=== PATIENT | male | born 1950 | race Caucasian/White ===

== ENCOUNTER 2021-09-26 20:18 | Inpatient (IN) | payer MEDICARE, SELFPAY ==
[2021-09-26 21:00] VITALS: BP 172/77; PULSE 73; RESP 19; TEMP 36.6; O2SAT 98
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
[2021-09-26 23:26] VITALS: BP 172/77; PULSE 73
[2021-09-26] MEDS: hydrALAZINE HCl 50 MG TABLET PO (23:26)
[2021-09-26] MEDS: QUEtiapine Fumarate 100 MG TABLET PO (23:30)
[2021-09-26] MEDS: QUEtiapine Fumarate 25 MG TABLET PO (23:30)
[2021-09-26] MEDS: LORazepam 1 MG TABLET PO (23:31)
[2021-09-27] MEDS: traZODone HCL 50 MG TABLET PO ×2 (00:25→20:28)
--- NOTE | 2021-09-27 02:37 | PC.ADMIT ---
Patient is a 71 year old male who arrived to the unit from [facility] via stretcher accompanied by Security and EMT. Patient is able to sign CV and all consent forms. Patient arrived to the unit alert and oriented x4, calm, pleasant, cooperative and tearful at times. Patient was brought to the ED via ambulance from [facility] in patient psych unit. Patient was admitted at [facility] with diagnosis of Bipolar 1 disorder, depression and Suicidal ideation. Patient reports spouse a week ago and as a result of the loss, he wanted to take his own life by medicating with percoset in hopes of overdosing. Pt reports I didn't think my would have loved that so I flushed the meds and called the police who took me to [facility]. Patient has history of multiple inpatient psychiatric, rehab and detox hospitalizations. 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 Patient wears dentures (up and down) and reports using glasses at baseline but states I don't have them with me because they are broken. Patient denies pain, denies SI/HI/AH/VH. Patient ambulates independently, skin is intact, no alterations to skin integrity noted or reported, no acute SOB noted, abdomen is soft and non tender with positive bowel sounds in all four quadrants. Patient reports independent with ADLs.
[2021-09-27 06:00] VITALS: BP 125/64; PULSE 87; RESP 14; TEMP 36.9; O2SAT 97
[2021-09-27 06:33] LABS: MANUAL DIFF FLAG NO
[2021-09-27 06:53] LABS: Basophils Percent Auto 0.3 % (0-2); Eosinophils Absolute Auto 0.1 X10*3/uL (0.0-0.4); Eosinophils Percent Auto 3.1 % (0-4); Hematocrit 33.2 % (42.0-52.0); Hemoglobin 11.3 g/dl (14.0-18.0); Imm Gran Abs Auto 0.01 X10*3/uL (0.00-0.03); Imm Gran Pct Auto 0.3 % (0.0-0.4); Lymphocytes Absolute Auto 0.8 X10*3/uL (1.2-4.9); Lymphocytes Percent Auto 22.9 % (20-40); Mean Corpuscular Hemoglobin 32.8 pg (27.0-33.0); Mean Corpuscular Volume 96.2 fL (80.0-98.0); Mean Platelet Volume 10.2 fL (9.4-12.4); Monocytes Absolute Auto 0.5 X10*3/uL (0.1-1.2); Monocytes Percent Auto 14.4 % (2-11); Neutrophils Absolute Auto 2.1 x10*3/uL (2.0-8.3); Platelet Count 197 X10*3/uL (160-400); Red Blood Count 3.45 X10*6/uL (4.60-5.80); Red Cell Distribution Width 13.2 % (11.0-16.0); White Blood Count 3.5 X10*3/uL (4.8-10.8)
[2021-09-27 06:58] LABS: Alanine Aminotransferase 23 U/L (0-40); Albumin Level 3.5 g/dL (3.5-5.0); Alkaline Phosphatase 50 U/L (39-117); Anion Gap 12 (12-20); Aspartate Amino Transferase 24 U/L (5-37); Bilirubin Total 0.6 mg/dL (0.0-1.0); Blood Urea Nitrogen 23 mg/dL (9-16); Calcium 8.1 mg/dL (8.4-10.2); Carbon Dioxide 23 mmol/L (22-29); Chloride 106 mmol/L (96-108); Cholesterol 115 mg/dL; Estimated Glomerular Filt Rate 58; Glucose Random 88 mg/dL (60-115); HDL Cholesterol 54 mg/dL; LDL Cholesterol Calculated 50 mg/dl; Magnesium 2.6 mg/dL (1.6-2.6); Potassium 4.1 mmol/L (3.3-5.1); Sodium 137 mmol/L (135-145); Total Protein 5.6 g/dL (6.5-8.0); Triglycerides 58 mg/dL
[2021-09-27 09:46] VITALS: BP 125/64; PULSE 87
[2021-09-27] MEDS: hydrALAZINE HCl 50 MG TABLET PO ×3 (09:46→20:28)
[2021-09-27] MEDS: Sertraline HCL 50 MG TABLET PO (09:46)
[2021-09-27] MEDS: Multivitamin TABLET 1 TAB PO (09:46)
[2021-09-27] MEDS: Folic Acid 1 MG TABLET PO (09:46)
[2021-09-27 09:47] VITALS: BP 125/64; PULSE 87
[2021-09-27] MEDS: Thiamine HCL 100 MG TABLET PO (09:47)
[2021-09-27] MEDS: amLODIPine Besylate 5 MG TABLET PO (09:47)
[2021-09-27] MEDS: QUEtiapine Fumarate 25 MG TABLET PO ×3 (09:47→20:28)
[2021-09-27] MEDS: Nicotine 21 MG PATCH.TD24 TRANSDERMA (09:47)
--- NOTE | 2021-09-27 11:26 | HO.PSYCHPN ---
Subjective Subjective Date of Service: 09/27/21 Reason For Visit: MDD recurrent, Bipolar disorder, depressed severe Subjective Notes: Conditional Voluntary Interim History: The nursing staff reported that the patient has been dysphoric, staying mostly on his bed. On interview the patient reports that she is feeling very sad and she is mourning the loss of his . At this moment he is able to contract for safety and he denies new symptoms Mental Status Exam Mental Status Exam Patient Appearance: Disheveled Patient Orientation: Person and Situation Level of Consciousness: Awake and Appropriate Patient Behavior: Cooperative and Passive Mood Description: Withdrawn and Depressed Affect Description: Constricted Patient Cognition Impaired: No Ability to Follow Directions: Good Speech Pattern: Clear Memory Description: Intact Hallucinations: None Delusions: Not Present Thought Process: Linear Thought Content: positive for Circumstantial Depressive Symptoms: Increased Anxiety, Crying Spells, Loss of Int. in Activity and Feelings of Worthlessness Judgement: Fair Diagnostics Vital Signs (24Hr): Vital Signs - 24 hr 09/26/21 21:00 09/26/21 23:26 09/27/21 06:00 Temperature 97.8 F 98.4 F Pulse Rate 73 73 87 Respiratory Rate 19 14 Blood Pressure 172/77 H 172/77 H 125/64 Pulse Oximetry 98 97 09/27/21 09:46 09/27/21 09:47 Temperature Pulse Rate 87 87 Respiratory Rate Blood Pressure 125/64 125/64 Pulse Oximetry Labs Results: 09/27/21 06:28 09/27/21 06:28 Labs: Laboratory Results - last 48 hr 09/27/21 09/27/21 06:28 06:28 WBC 3.5 L RBC 3.45 L Hgb 11.3 L Hct 33.2 L MCV 96.2 MCH 32.8 MCHC 34.0 RDW 13.2 Plt Count 197 MPV 10.2 Immature Gran % (Auto) 0.3 Neut % (Auto) 59.0 Lymph % (Auto) 22.9 [place] % (Auto) 14.4 H Eos % (Auto) 3.1 Baso % (Auto) 0.3 Lymph # (Auto) 0.8 L [place] # (Auto) 0.5 Eos # (Auto) 0.1 Baso # (Auto) 0.0 Abs Immat Gran (auto) 0.01 Absolute Neuts (auto) 2.1 Absolute Nucleated RBC 0.000 Nucleated RBC % (auto) 0.0 Sodium 137 Potassium 4.1 Chloride 106 Carbon Dioxide 23 Anion Gap 12 BUN 23 H Creatinine 1.23 Estim Creat Clear Calc TNP Estimated GFR 58 Random Glucose 88 Calcium 8.1 L Magnesium 2.6 Total Bilirubin 0.6 AST 24 ALT 23 Alkaline Phosphatase 50 Total Protein 5.6 L Albumin 3.5 Triglycerides 58 Cholesterol 115 LDL Cholesterol, Calc 50 HDL Cholesterol 54 Medications Medications Current Medications Acetaminophen (Acetaminophen 325 Mg Tablet) 650 mg PO Q6H PRN PRN Reason: Headache/Pain Mild Scale (1-3) Al Hydroxide/Mg Hydroxide (Magnesium Hydrox/Alum Hydrox 30 Ml Oral.Susp) 30 ml PO Q6H PRN PRN Reason: Heartburn/Nausea Albuterol Sulfate (Albuterol Sulfate 90 Mcg 8 Gm Inhaler) 2 puff INHALE Q4H PRN PRN Reason: Shortness of Breath Amlodipine Besylate (Amlodipine Besylate 5 Mg Tablet) 5 mg PO DAILY [facility]; Protocol Last Admin: 09/27/21 09:47 Dose: 5 mg Documented by: Folic Acid (Folic Acid 1 Mg Tablet) 1 mg PO DAILY [facility] Last Admin: 09/27/21 09:46 Dose: 1 mg Documented by: Hydralazine HCl (Hydralazine Hcl 50 Mg Tablet) 50 mg PO TID [facility]; Protocol Last Admin: 09/27/21 09:46 Dose: 50 mg Documented by: Hydroxyzine HCl (Hydroxyzine Hcl 25 Mg Tablet) 25 mg PO Q6H PRN PRN Reason: Anxiety Lorazepam (Lorazepam 1 Mg Tablet) 1 mg PO Q6H PRN PRN Reason: anxiety, alcohol withdrawal Last Admin: 09/26/21 23:31 Dose: 1 mg Documented by: Magnesium Hydroxide (Milk Of Magnesia 30 Ml Oral.Susp) 30 ml PO DAILY PRN PRN Reason: Constipation Multivitamins/Vitamin C (Multivitamin Tablet) 1 tab PO DAILY [facility] Last Admin: 09/27/21 09:46 Dose: 1 tab Documented by: Nicotine (Nicotine 21 Mg Patch.Td24) 21 mg TRANSDERMA DAILY [facility] Last Admin: 09/27/21 09:47 Dose: 21 mg Documented by: Quetiapine Fumarate (Quetiapine Fumarate 100 Mg Tablet) 100 mg PO BEDTIME [facility] Last Admin: 09/26/21 23:30 Dose: 100 mg Documented by: Quetiapine Fumarate (Quetiapine Fumarate 25 Mg Tablet) 25 mg PO TID [facility] Last Admin: 09/27/21 09:47 Dose: 25 mg Documented by: Sertraline HCl (Sertraline Hcl 50 Mg Tablet) 50 mg PO DAILY [facility] Last Admin: 09/27/21 09:46 Dose: 50 mg Documented by: Thiamine HCl (Thiamine Hcl 100 Mg Tablet) 100 mg PO DAILY [facility] Last Admin: 09/27/21 09:47 Dose: 100 mg Documented by: Trazodone HCl (Trazodone Hcl 50 Mg Tablet) 50 mg PO BEDTIME PRN PRN Reason: Insomnia Last Admin: 09/27/21 00:25 Dose: 50 mg Documented by: Allergies Allergies Allergy/AdvReac Type Severity Reaction Status Date / Time No Known Allergies Allergy Unverified 09/26/21 20:49 Assessment & Plan Assessment & Plan (1) MDD (major depressive disorder), recurrent severe, without psychosis: Status: Acute Code(s): F33.2 - Major depressive disorder, recurrent severe without psychotic features (2) Cocaine use disorder: Status: Acute Code(s): F14.10 - Cocaine abuse, uncomplicated (3) Alcohol use disorder, severe, dependence: Status: Acute Code(s): F10.20 - Alcohol dependence, uncomplicated Assessment and Plan: 71 y.o. Male who carries a dx of MDD, recurrent, severe, alcohol use disorder, and cocaine use disorder. He is currently presenting with sx of acute grief s/p loss of 09/19/21, depression, suicidal ideation, and with active alcohol and substance abuse. Plan: Order CIWA monitoring, ativan 1 mg Q6H PRN for alcohol withdrawal. Seroquel and zoloft were re-started at [place] due to pt reporting past benefit on these medications for sleep, anxiety, and mood sx- no med changes. Reviewed medical workup at ED, EKG wnl, NSR. Will continue on thiamine, folic acid regimen. Monitor response to medications. Monitor for safety in the milieu. Discharge on stabilization. Patient seen. Chart reviewed. Discussed with team. Obtain collateral contact info?as needed I spent minutes with the patient and/or on the patient floor today, greater than?50% of which was spent counseling/coordinating care. Reason for contiued inpatient stay Substantial Risk for: inability to function, rapid decompensation and med/psych decompensation
[2021-09-27] MEDS: LORazepam 1 MG TABLET PO ×2 (12:36→19:12)
[2021-09-27 15:25] VITALS: BP 120/64; PULSE 82
--- NOTE | 2021-09-27 15:30 | HO.HSGERICON ---
History of Present Illness Data of Consult Service Date: 09/27/21 Primary Care Provider: Unknown Physician HPI Reason for consult: new admit from [facility] 71-year-old male history of bipolar, PTSD, hypertension noncompliant with medication, history of alcohol abuse, COPD, smoking crack use-he try to end his life with the taking Percocet after his to 3 weeks ago. He was transferred from [facility] to [place] to [facility] psych floor. Patient was seen and examined: Denies any new complaint of chest pain or shortness of breath or abdominal pain or fever or chills or nausea or vomiting Denies any cough Denies any weakness or numbness. Past medical history as per [facility] H&P. Bipolar disorder CV a ETOH abuse Heroin abuse Hypertension Peripheral neuropathy PTSD Right facial numbness Suicidal ideation Review of Systems Review of Systems: As above. Yes all other systems are reviewed and are negative ENT: Reports Normal hearing present Neurologic: Reports Normal hearing present PMFSH Cognitive capacity: As above in HPI. Pertinent family history: Lives alone, has history of alcoholism, hypertension in the family. recently. As above. Social History Household Members: None Housing: Homeless Do you presently have visiting nurse or other home services: No Patient Tobacco Use Status: Current everyday Tobacco user Tobacco use type: Cigarette Cigarettes Per Day: 0.5 Smoked in Last 30 Days: Yes Patient Interested in Nicotine Replacement: Yes Use of substances other than those prescribed or required for medical reasons: Yes Substance Use Type: Amphetamines, Crack/Cocaine, Former Substance User, Marijuana, Methamphetamine and Opiates Substance Use Frequency: Daily Last Used Substance: Weeks (ago) Last Used Substance Other:: 1 week ago Currently Displaying Signs/Symptoms of Drug Intoxication Withdrawal: No Any prior treatment program specific to substance use: Yes (Hx of detox treatment in the past) Have you been hit, kicked, punched, or otherwise hurt by someone within the past year? If so, by whom?: No Do you feel safe in your current relationship?: No Is there a partner from a previous relationship who is making you feel unsafe now?: No Are you made to feel afraid or neglected: No Advance Directives: No Advance Directives Information Provided: No Do you have thoughts of harming others: None Do you have a plan to hurt others: No Plan Recently lost weight without trying: No Eating poorly because of decreased appetite: No Nutrition Risks: No Nutritional Risk Poor oral hygiene: No Meds Allergies Allergy/AdvReac Type Severity Reaction Status Date / Time No Known Allergies Allergy Unverified 09/26/21 20:49 Active Medications: Current Medications Acetaminophen (Acetaminophen 325 Mg Tablet) 650 mg PO Q6H PRN PRN Reason: Headache/Pain Mild Scale (1-3) Al Hydroxide/Mg Hydroxide (Magnesium Hydrox/Alum Hydrox 30 Ml Oral.Susp) 30 ml PO Q6H PRN PRN Reason: Heartburn/Nausea Albuterol Sulfate (Albuterol Sulfate 90 Mcg 8 Gm Inhaler) 2 puff INHALE Q4H PRN PRN Reason: Shortness of Breath Amlodipine Besylate (Amlodipine Besylate 5 Mg Tablet) 5 mg PO DAILY [facility]; Protocol Last Admin: 09/27/21 09:47 Dose: 5 mg Documented by: Folic Acid (Folic Acid 1 Mg Tablet) 1 mg PO DAILY [facility] Last Admin: 09/27/21 09:46 Dose: 1 mg Documented by: Hydralazine HCl (Hydralazine Hcl 50 Mg Tablet) 50 mg PO TID [facility]; Protocol Last Admin: 09/27/21 15:25 Dose: 50 mg Documented by: Hydroxyzine HCl (Hydroxyzine Hcl 25 Mg Tablet) 25 mg PO Q6H PRN PRN Reason: Anxiety Lorazepam (Lorazepam 1 Mg Tablet) 1 mg PO Q6H PRN PRN Reason: anxiety, alcohol withdrawal Last Admin: 09/27/21 12:36 Dose: 1 mg Documented by: Magnesium Hydroxide (Milk Of Magnesia 30 Ml Oral.Susp) 30 ml PO DAILY PRN PRN Reason: Constipation Multivitamins/Vitamin C (Multivitamin Tablet) 1 tab PO DAILY [facility] Last Admin: 09/27/21 09:46 Dose: 1 tab Documented by: Nicotine (Nicotine 21 Mg Patch.Td24) 21 mg TRANSDERMA DAILY [facility] Last Admin: 09/27/21 09:47 Dose: 21 mg Documented by: Quetiapine Fumarate (Quetiapine Fumarate 100 Mg Tablet) 100 mg PO BEDTIME [facility] Last Admin: 09/26/21 23:30 Dose: 100 mg Documented by: Quetiapine Fumarate (Quetiapine Fumarate 25 Mg Tablet) 25 mg PO TID [facility] Last Admin: 09/27/21 15:25 Dose: 25 mg Documented by: Sertraline HCl (Sertraline Hcl 50 Mg Tablet) 50 mg PO DAILY [facility] Last Admin: 09/27/21 09:46 Dose: 50 mg Documented by: Thiamine HCl (Thiamine Hcl 100 Mg Tablet) 100 mg PO DAILY [facility] Last Admin: 09/27/21 09:47 Dose: 100 mg Documented by: Trazodone HCl (Trazodone Hcl 50 Mg Tablet) 50 mg PO BEDTIME PRN PRN Reason: Insomnia Last Admin: 09/27/21 00:25 Dose: 50 mg Documented by: Results Labs CBC and Chem 7: 09/27/21 06:28 09/27/21 06:28 Labs: Laboratory Results - last 24 hr 09/27/21 09/27/21 06:28 06:28 MCV 96.2 MCH 32.8 MCHC 34.0 RDW 13.2 Plt Count 197 MPV 10.2 Immature Gran % (Auto) 0.3 Neut % (Auto) 59.0 Lymph % (Auto) 22.9 [place] % (Auto) 14.4 H Eos % (Auto) 3.1 Baso % (Auto) 0.3 Lymph # (Auto) 0.8 L [place] # (Auto) 0.5 Eos # (Auto) 0.1 Baso # (Auto) 0.0 Abs Immat Gran (auto) 0.01 Absolute Neuts (auto) 2.1 Absolute Nucleated RBC 0.000 Nucleated RBC % (auto) 0.0 Anion Gap 12 Estim Creat Clear Calc TNP Estimated GFR 58 Random Glucose 88 Calcium 8.1 L Magnesium 2.6 Total Bilirubin 0.6 AST 24 ALT 23 Alkaline Phosphatase 50 Total Protein 5.6 L Albumin 3.5 Triglycerides 58 Cholesterol 115 LDL Cholesterol, Calc 50 HDL Cholesterol 54 Assessment and Plan (1) HTN (hypertension): Status: Acute 71-year-old male who was transferred from the [facility] secondary to suicidal ideation use of Percocet. 1. Hypertension continue amlodipine. Blood pressure stable currently. 2. COPD: Stable continue albuterol. 3. Alcohol abuse history: Continue thiamine and folic acid, currently does not look into in withdrawal. Last alcohol use is more than a week back. Continue thiamine and folic acid. 4. PTSD/anxiety, drug use cocaine : Continue current anxiety medication and further management as per psych. Above management discussed with patient's psych provider in detail. Physical Exam Vital Signs: Last Vital Signs Temp 98.4 F 09/27/21 06:00 Pulse 82 09/27/21 15:25 Resp 14 09/27/21 06:00 BP 120/64 09/27/21 15:25 Pulse Ox 97 09/27/21 06:00 Physical exam: Appearance: Alert.? Oriented X3.? not in distress.? Eyes: Pupils equal, round and reactive to light.? Sclera nonicteric.? ENT: Pharynx normal.? Moist mucous membranes. cvs: rrr, [id number] , no murmur res: clear to auscultation ,no rhonchii or wheezing abd: no rebound or guarding ,nt, bs present. ext pulses present , no cyanosis ,Gait well balanced well coordinated. neuro: axo3 , nonfocal. Psych;mood labile ,anxious Eyes Pupils: Equal, round and reactive pupils present Neuro Cranial nerves: Yes CN's II-XII intact bilaterally, Yes Facial sensation intact/muscles of mastication intact, Yes Intact sense of smell present, Yes Equal, round and reactive pupils present, Yes Normal accommodation reflex present, Yes Bilaterally intact EOM present, Yes Nystagmus not present, Yes Normal facial strength present, Yes Midline tongue present, Yes Normal gag reflex present, Yes Symmetric palate elevation present, Yes Normal hearing present, Yes Ability to bilaterally rotate head present and Yes Ability to bilaterally elevate shoulders present
[2021-09-27 19:31] VITALS: BP 170/72; PULSE 78; RESP 19; TEMP 37; O2SAT 99
[2021-09-27 20:28] VITALS: BP 170/72; PULSE 78
[2021-09-27] MEDS: QUEtiapine Fumarate 100 MG TABLET PO (20:28)
[2021-09-27] MEDS: hydrOXYzine HCL 25 MG TABLET PO (23:49)
--- NOTE | 2021-09-28 07:39 | HO.PSYCHPN ---
Subjective Subjective Date of Service: 09/28/21 Reason For Visit: MDD recurrent, Bipolar disorder, depressed severe Subjective Notes: Conditional Voluntary Interim History: The nursing staff reported that the patient spent most of the time watching TV in the common area. He looks dysphoric and sad but able to do his own ADL's. Last night, he couldn't sleep so needed PRN Atarax at 11 pm with fair response. On interview, he reported that he is sad and depressed, no active suicidal thoughts. His main complaint is poor sleep. As per his report, he used to take Seroquel 300 mg at hs. Review of Systems Acute medical concerns: No Medical Review of Systems: unchanged Mental Status Exam Mental Status Exam Patient Appearance: Well Grooomed Patient Orientation: Person, Place, Time and Situation Level of Consciousness: Awake and Appropriate Patient Behavior: Passive and Suspicious Mood Description: Withdrawn and Constricted Affect Description: Constricted Patient Cognition Impaired: No Ability to Follow Directions: Good Speech Pattern: Clear Memory Description: Intact Hallucinations: None Delusions: Not Present Thought Process: Linear Thought Content: positive for Circumstantial Judgement: Fair Diagnostics Vital Signs (24Hr): Vital Signs - 24 hr 09/27/21 09:46 09/27/21 09:47 09/27/21 15:25 Temperature Pulse Rate 87 87 82 Respiratory Rate Blood Pressure 125/64 125/64 120/64 Pulse Oximetry 09/27/21 19:31 09/27/21 20:28 Temperature 98.6 F Pulse Rate 78 78 Respiratory Rate 19 Blood Pressure 170/72 H 170/72 H Pulse Oximetry 99 Labs Results: 09/27/21 06:28 09/27/21 06:28 Labs: Laboratory Results - last 48 hr 09/27/21 09/27/21 06:28 06:28 WBC 3.5 L RBC 3.45 L Hgb 11.3 L Hct 33.2 L MCV 96.2 MCH 32.8 MCHC 34.0 RDW 13.2 Plt Count 197 MPV 10.2 Immature Gran % (Auto) 0.3 Neut % (Auto) 59.0 Lymph % (Auto) 22.9 Hartley % (Auto) 14.4 H Eos % (Auto) 3.1 Baso % (Auto) 0.3 Lymph # (Auto) 0.8 L Hartley # (Auto) 0.5 Eos # (Auto) 0.1 Baso # (Auto) 0.0 Abs Immat Gran (auto) 0.01 Absolute Neuts (auto) 2.1 Absolute Nucleated RBC 0.000 Nucleated RBC % (auto) 0.0 Sodium 137 Potassium 4.1 Chloride 106 Carbon Dioxide 23 Anion Gap 12 BUN 23 H Creatinine 1.23 Estim Creat Clear Calc TNP Estimated GFR 58 Random Glucose 88 Calcium 8.1 L Magnesium 2.6 Total Bilirubin 0.6 AST 24 ALT 23 Alkaline Phosphatase 50 Total Protein 5.6 L Albumin 3.5 Triglycerides 58 Cholesterol 115 LDL Cholesterol, Calc 50 HDL Cholesterol 54 Medications Medications Current Medications Acetaminophen (Acetaminophen 325 Mg Tablet) 650 mg PO Q6H PRN PRN Reason: Headache/Pain Mild Scale (1-3) Al Hydroxide/Mg Hydroxide (Magnesium Hydrox/Alum Hydrox 30 Ml Oral.Susp) 30 ml PO Q6H PRN PRN Reason: Heartburn/Nausea Albuterol Sulfate (Albuterol Sulfate 90 Mcg 8 Gm Inhaler) 2 puff INHALE Q4H PRN PRN Reason: Shortness of Breath Amlodipine Besylate (Amlodipine Besylate 5 Mg Tablet) 5 mg PO DAILY [facility]; Protocol Last Admin: 09/27/21 09:47 Dose: 5 mg Documented by: Folic Acid (Folic Acid 1 Mg Tablet) 1 mg PO DAILY [facility] Last Admin: 09/27/21 09:46 Dose: 1 mg Documented by: Hydralazine HCl (Hydralazine Hcl 50 Mg Tablet) 50 mg PO TID [facility]; Protocol Last Admin: 09/27/21 20:28 Dose: 50 mg Documented by: Hydroxyzine HCl (Hydroxyzine Hcl 25 Mg Tablet) 25 mg PO Q6H PRN PRN Reason: Anxiety Last Admin: 09/27/21 23:49 Dose: 25 mg Documented by: Lorazepam (Lorazepam 1 Mg Tablet) 1 mg PO Q6H PRN PRN Reason: anxiety, alcohol withdrawal Last Admin: 09/27/21 19:12 Dose: 1 mg Documented by: Magnesium Hydroxide (Milk Of Magnesia 30 Ml Oral.Susp) 30 ml PO DAILY PRN PRN Reason: Constipation Multivitamins/Vitamin C (Multivitamin Tablet) 1 tab PO DAILY [facility] Last Admin: 09/27/21 09:46 Dose: 1 tab Documented by: Nicotine (Nicotine 21 Mg Patch.Td24) 21 mg TRANSDERMA DAILY [facility] Last Admin: 09/27/21 09:47 Dose: 21 mg Documented by: Quetiapine Fumarate (Quetiapine Fumarate 100 Mg Tablet) 100 mg PO BEDTIME [facility] Last Admin: 09/27/21 20:28 Dose: 100 mg Documented by: Quetiapine Fumarate (Quetiapine Fumarate 25 Mg Tablet) 25 mg PO TID [facility] Last Admin: 09/27/21 20:28 Dose: 25 mg Documented by: Sertraline HCl (Sertraline Hcl 50 Mg Tablet) 50 mg PO DAILY [facility] Last Admin: 09/27/21 09:46 Dose: 50 mg Documented by: Thiamine HCl (Thiamine Hcl 100 Mg Tablet) 100 mg PO DAILY [facility] Last Admin: 09/27/21 09:47 Dose: 100 mg Documented by: Trazodone HCl (Trazodone Hcl 50 Mg Tablet) 50 mg PO BEDTIME PRN PRN Reason: Insomnia Last Admin: 09/27/21 20:28 Dose: 50 mg Documented by: Allergies Allergies Allergy/AdvReac Type Severity Reaction Status Date / Time No Known Allergies Allergy Unverified 09/26/21 20:49 Assessment & Plan Assessment & Plan (1) HTN (hypertension): Status: Acute Code(s): I10 - Essential (primary) hypertension Assessment and Plan: 71-year-old male who was transferred from the [facility] secondary to suicidal ideation use of Percocet, diagnosed with Bipolar Disorder, a long history of alcohol use disorder, opioid use disorder and cocaine use disorder, admitted after an exacerbation of depression in the context on the recent loss of his a few days ago. Plan: 1. Increase Seroquel up to 300 mg po qhs. 2. Keep rest the same treatment. I spent minutes with the patient and/or on the patient floor today, greater than?50% of which was spent counseling/coordinating care. Reason for contiued inpatient stay Substantial Risk for: inability to function, rapid decompensation and med/psych decompensation
[2021-09-28] MEDS: Nicotine 21 MG PATCH.TD24 TRANSDERMA (08:45)
[2021-09-28 08:46] VITALS: BP 187/80; PULSE 74
[2021-09-28] MEDS: Multivitamin TABLET 1 TAB PO (08:46)
[2021-09-28] MEDS: Sertraline HCL 50 MG TABLET PO (08:46)
[2021-09-28] MEDS: QUEtiapine Fumarate 25 MG TABLET PO ×3 (08:46→21:23)
[2021-09-28] MEDS: hydrALAZINE HCl 50 MG TABLET PO ×3 (08:46→21:23)
[2021-09-28] MEDS: Folic Acid 1 MG TABLET PO (08:46)
[2021-09-28] MEDS: Thiamine HCL 100 MG TABLET PO (08:46)
[2021-09-28 08:47] VITALS: BP 187/80; PULSE 74
[2021-09-28] MEDS: amLODIPine Besylate 5 MG TABLET PO (08:47)
[2021-09-28] MEDS: LORazepam 1 MG TABLET PO ×3 (08:50→21:23)
[2021-09-28 09:10] VITALS: BP 187/80; PULSE 74; RESP 17; TEMP 36.7; O2SAT 98
[2021-09-28 15:53] VITALS: BP 178/76; PULSE 70
[2021-09-28 21:15] VITALS: BP 158/71; PULSE 79; RESP 18; TEMP 36.4; O2SAT 97
[2021-09-28 21:23] VITALS: BP 158/71; PULSE 79
[2021-09-28] MEDS: QUEtiapine Fumarate 300 MG TABLET PO (21:23)
--- NOTE | 2021-09-29 01:52 | PC.NURSE ---
Dr. Schuler confirmed patient is to take a total of 325mg Quetiapine at HS. Pt. is prescribed 300mg QHS and 25mg TID.
[2021-09-29 06:00] VITALS: BP 180/88; PULSE 78; TEMP 36.1; O2SAT 98
[2021-09-29] MEDS: hydrALAZINE HCl 50 MG TABLET PO ×3 (10:19→21:33)
[2021-09-29] MEDS: Folic Acid 1 MG TABLET PO (10:20)
[2021-09-29] MEDS: amLODIPine Besylate 5 MG TABLET PO (10:20)
[2021-09-29] MEDS: QUEtiapine Fumarate 25 MG TABLET PO ×3 (10:20→21:33)
[2021-09-29] MEDS: Nicotine 21 MG PATCH.TD24 TRANSDERMA (10:20)
[2021-09-29] MEDS: Sertraline HCL 50 MG TABLET PO (10:20)
[2021-09-29] MEDS: Thiamine HCL 100 MG TABLET PO (10:20)
[2021-09-29] MEDS: Multivitamin TABLET 1 TAB PO (10:20)
--- NOTE | 2021-09-29 15:04 | P.PNPSI_ITS ---
Subjective Subjective Date of Service: 09/29/21 Reason For Visit: MDD recurrent, Bipolar disorder, depressed severe Subjective Notes: Conditional Voluntary Interim History: The nursing staff reported that the patient has been depressed, dysphoric, isolative mostly in his room. On interview, the patient reported that he is very depressed 10/10 but overall no other somatic complaints. He has a slept fairly well. We discussed with the patient the possibility to increase Zoloft to target depression and he agreed Review of Systems Acute medical concerns: No Medical Review of Systems: unchanged Mental Status Exam Mental Status Exam Patient Appearance: Well Grooomed Patient Orientation: Person, Place, Time and Situation Level of Consciousness: Awake Patient Behavior: Cooperative Mood Description: Depressed Affect Description: Constricted and Sad Patient Cognition Impaired: No Ability to Follow Directions: Good Speech Pattern: Clear Memory Description: Intact Hallucinations: None Delusions: Not Present Thought Process: Linear Thought Content: positive for Circumstantial and positive for Logical Depressive Symptoms: Difficulty Sleeping, Crying Spells and Feelings of Worthlessness Judgement: Fair Diagnostics Vital Signs (24Hr): Vital Signs - 24 hr 09/28/21 15:53 09/28/21 21:15 09/28/21 21:23 Temperature 97.6 F Pulse Rate 70 79 79 Respiratory Rate 18 Blood Pressure 178/76 H 158/71 H 158/71 H Pulse Oximetry 97 09/29/21 06:00 Temperature 96.9 F Pulse Rate 78 Respiratory Rate Blood Pressure 180/88 H Pulse Oximetry 98 Labs Results: 09/27/21 06:28 09/27/21 06:28 Medications Medications Current Medications Acetaminophen (Acetaminophen 325 Mg Tablet) 650 mg PO Q6H PRN PRN Reason: Headache/Pain Mild Scale (1-3) Al Hydroxide/Mg Hydroxide (Magnesium Hydrox/Alum Hydrox 30 Ml Oral.Susp) 30 ml PO Q6H PRN PRN Reason: Heartburn/Nausea Albuterol Sulfate (Albuterol Sulfate 90 Mcg 8 Gm Inhaler) 2 puff INHALE Q4H PRN PRN Reason: Shortness of Breath Amlodipine Besylate (Amlodipine Besylate 5 Mg Tablet) 5 mg PO DAILY [facility]; Protocol Last Admin: 09/29/21 10:20 Dose: 5 mg Documented by: Folic Acid (Folic Acid 1 Mg Tablet) 1 mg PO DAILY [facility] Last Admin: 09/29/21 10:20 Dose: 1 mg Documented by: Hydralazine HCl (Hydralazine Hcl 50 Mg Tablet) 50 mg PO TID [facility]; Protocol Last Admin: 09/29/21 10:19 Dose: 50 mg Documented by: Hydroxyzine HCl (Hydroxyzine Hcl 25 Mg Tablet) 25 mg PO Q6H PRN PRN Reason: Anxiety Last Admin: 09/27/21 23:49 Dose: 25 mg Documented by: Lorazepam (Lorazepam 1 Mg Tablet) 1 mg PO Q6H PRN PRN Reason: anxiety, alcohol withdrawal Last Admin: 09/28/21 21:23 Dose: 1 mg Documented by: Magnesium Hydroxide (Milk Of Magnesia 30 Ml Oral.Susp) 30 ml PO DAILY PRN PRN Reason: Constipation Multivitamins/Vitamin C (Multivitamin Tablet) 1 tab PO DAILY [facility] Last Admin: 09/29/21 10:20 Dose: 1 tab Documented by: Nicotine (Nicotine 21 Mg Patch.Td24) 21 mg TRANSDERMA DAILY [facility] Last Admin: 09/29/21 10:20 Dose: 21 mg Documented by: Quetiapine Fumarate (Quetiapine Fumarate 25 Mg Tablet) 25 mg PO TID [facility] Last Admin: 09/29/21 10:20 Dose: 25 mg Documented by: Quetiapine Fumarate (Quetiapine Fumarate 300 Mg Tablet) 300 mg PO BEDTIME [facility] Last Admin: 09/28/21 21:23 Dose: 300 mg Documented by: Sertraline HCl (Sertraline Hcl 100 Mg Tablet) 100 mg PO DAILY [facility] Thiamine HCl (Thiamine Hcl 100 Mg Tablet) 100 mg PO DAILY [facility] Last Admin: 09/29/21 10:20 Dose: 100 mg Documented by: Trazodone HCl (Trazodone Hcl 50 Mg Tablet) 50 mg PO BEDTIME PRN PRN Reason: Insomnia Last Admin: 09/27/21 20:28 Dose: 50 mg Documented by: Allergies Allergies Allergy/AdvReac Type Severity Reaction Status Date / Time No Known Allergies Allergy Unverified 09/26/21 20:49 Assessment & Plan Assessment & Plan (1) HTN (hypertension): Status: Acute Code(s): I10 - Essential (primary) hypertension Assessment and Plan: 71-year-old male who was transferred from the [facility] secondary to suicidal ideation use of Percocet, diagnosed with Bipolar Disorder, a long history of alcohol use disorder, opioid use disorder and cocaine use disorder, admitted after an exacerbation of depression in the context on the recent loss of his a few days ago. Plan: 1. Increase Zoloft up to 100 mg p.o. q.h.s. 2. Keep rest the same treatment. I spent minutes with the patient and/or on the patient floor today, greater than?50% of which was spent counseling/coordinating care. Reason for contiued inpatient stay Substantial Risk for: harm to self, inability to function, rapid decompensation and med/psych decompensation
[2021-09-29 15:49] VITALS: BP 168/88; PULSE 90
[2021-09-29 16:17] VITALS: BMI 19.7
[2021-09-29 18:00] VITALS: BP 177/77; PULSE 86; RESP 18; TEMP 36.8; O2SAT 98
[2021-09-29 21:33] VITALS: BP 177/77; PULSE 86
[2021-09-29] MEDS: QUEtiapine Fumarate 300 MG TABLET PO (21:33)
[2021-09-29] MEDS: LORazepam 1 MG TABLET PO (21:35)
[2021-09-29] MEDS: traZODone HCL 50 MG TABLET PO (23:48)
[2021-09-30 06:00] VITALS: BP 138/64; PULSE 77; RESP 14; TEMP 37; O2SAT 98
[2021-09-30] MEDS: LORazepam 1 MG TABLET PO ×2 (09:46→16:37)
[2021-09-30 09:47] VITALS: BP 136/64; PULSE 77
[2021-09-30] MEDS: Folic Acid 1 MG TABLET PO (09:47)
[2021-09-30] MEDS: Multivitamin TABLET 1 TAB PO (09:47)
[2021-09-30] MEDS: QUEtiapine Fumarate 25 MG TABLET PO ×3 (09:47→19:58)
[2021-09-30] MEDS: Sertraline HCL 100 MG TABLET PO (09:47)
[2021-09-30] MEDS: amLODIPine Besylate 5 MG TABLET PO (09:47)
[2021-09-30 09:48] VITALS: BP 138/64; PULSE 77
[2021-09-30] MEDS: hydrALAZINE HCl 50 MG TABLET PO ×3 (09:48→19:57)
[2021-09-30] MEDS: Thiamine HCL 100 MG TABLET PO (09:48)
--- NOTE | 2021-09-30 11:35 | P.PNPSI_ITS ---
Subjective Subjective Date of Service: 09/30/21 Reason For Visit: MDD recurrent, Bipolar disorder, depressed severe Subjective Notes: Conditional Voluntary Interim History: The nursing staff reports the patient has being sad and depressed, mostly in his room but sometimes on the common areas. The high school social science teacher talked with him and apparently he had a horrible life as a minor, with a lot of trauma he can not read or write and he has been doing patient to [facility] for suicidal and at times. His main problem is mostly substance abuse and lack of support. On interview, the patient reported that he did not have any side effects with increase of Zoloft, his dysphoric but able to contract for safety in the facility Mental Status Exam Mental Status Exam Patient Appearance: Well Grooomed Patient Orientation: Person, Place and Situation Level of Consciousness: Awake and Appropriate Patient Behavior: Cooperative and Passive Mood Description: Constricted and Depressed Affect Description: Constricted Patient Cognition Impaired: No Ability to Follow Directions: Good Speech Pattern: Appropriate Hallucinations: None Delusions: Not Present Thought Process: Goal Oriented Thought Content: positive for Circumstantial Judgement: Fair Diagnostics Vital Signs (24Hr): Vital Signs - 24 hr 09/29/21 15:49 09/29/21 18:00 09/29/21 21:33 Temperature 98.3 F Pulse Rate 90 86 86 Respiratory Rate 18 Blood Pressure 168/88 H 177/77 H 177/77 H Pulse Oximetry 98 09/30/21 06:00 09/30/21 09:47 09/30/21 09:48 Temperature 98.6 F Pulse Rate 77 77 77 Respiratory Rate 14 Blood Pressure 138/64 136/64 138/64 Pulse Oximetry 98 Body Mass Index 19.7 Labs Results: 09/27/21 06:28 09/27/21 06:28 Medications Medications Current Medications Acetaminophen (Acetaminophen 325 Mg Tablet) 650 mg PO Q6H PRN PRN Reason: Headache/Pain Mild Scale (1-3) Al Hydroxide/Mg Hydroxide (Magnesium Hydrox/Alum Hydrox 30 Ml Oral.Susp) 30 ml PO Q6H PRN PRN Reason: Heartburn/Nausea Albuterol Sulfate (Albuterol Sulfate 90 Mcg 8 Gm Inhaler) 2 puff INHALE Q4H PRN PRN Reason: Shortness of Breath Amlodipine Besylate (Amlodipine Besylate 5 Mg Tablet) 5 mg PO DAILY [facility]; Protocol Last Admin: 09/30/21 09:47 Dose: 5 mg Documented by: Folic Acid (Folic Acid 1 Mg Tablet) 1 mg PO DAILY [facility] Last Admin: 09/30/21 09:47 Dose: 1 mg Documented by: Hydralazine HCl (Hydralazine Hcl 50 Mg Tablet) 50 mg PO TID [facility]; Protocol Last Admin: 09/30/21 09:48 Dose: 50 mg Documented by: Hydroxyzine HCl (Hydroxyzine Hcl 25 Mg Tablet) 25 mg PO Q6H PRN PRN Reason: Anxiety Last Admin: 09/27/21 23:49 Dose: 25 mg Documented by: Lorazepam (Lorazepam 1 Mg Tablet) 1 mg PO Q6H PRN PRN Reason: anxiety, alcohol withdrawal Last Admin: 09/30/21 09:46 Dose: 1 mg Documented by: Magnesium Hydroxide (Milk Of Magnesia 30 Ml Oral.Susp) 30 ml PO DAILY PRN PRN Reason: Constipation Multivitamins/Vitamin C (Multivitamin Tablet) 1 tab PO DAILY [facility] Last Admin: 09/30/21 09:47 Dose: 1 tab Documented by: Nicotine (Nicotine 21 Mg Patch.Td24) 21 mg TRANSDERMA DAILY [facility] Last Admin: 09/29/21 10:20 Dose: 21 mg Documented by: Quetiapine Fumarate (Quetiapine Fumarate 25 Mg Tablet) 25 mg PO TID [facility] Last Admin: 09/30/21 09:47 Dose: 25 mg Documented by: Quetiapine Fumarate (Quetiapine Fumarate 300 Mg Tablet) 300 mg PO BEDTIME [facility] Last Admin: 09/29/21 21:33 Dose: 300 mg Documented by: Sertraline HCl (Sertraline Hcl 100 Mg Tablet) 100 mg PO DAILY [facility] Last Admin: 09/30/21 09:47 Dose: 100 mg Documented by: Thiamine HCl (Thiamine Hcl 100 Mg Tablet) 100 mg PO DAILY [facility] Last Admin: 09/30/21 09:48 Dose: 100 mg Documented by: Trazodone HCl (Trazodone Hcl 50 Mg Tablet) 50 mg PO BEDTIME PRN PRN Reason: Insomnia Last Admin: 09/29/21 23:48 Dose: 50 mg Documented by: Allergies Allergies Allergy/AdvReac Type Severity Reaction Status Date / Time No Known Allergies Allergy Unverified 09/26/21 20:49 Assessment & Plan Assessment & Plan (1) HTN (hypertension): Status: Acute Code(s): I10 - Essential (primary) hypertension Assessment and Plan: 71-year-old male who was transferred from the [facility] secondary to suicidal ideation use of Percocet, diagnosed with Bipolar Disorder, a long history of alcohol use disorder, opioid use disorder and cocaine use disorder, admitted after an exacerbation of depression in the context on the recent loss of his a few days ago. Plan: 1. Keep same treatment. 2. Reassessment with the team for discharge planning. I spent minutes with the patient and/or on the patient floor today, greater than?50% of which was spent counseling/coordinating care. Reason for contiued inpatient stay Substantial Risk for: harm to self, inability to function, rapid decompensation and med/psych decompensation
--- NOTE | 2021-09-30 16:39 | PC.NURSE ---
Pt refused Flu vaccine.
[2021-09-30 18:00] VITALS: BP 194/81; PULSE 75; RESP 18; TEMP 36.5; O2SAT 98
[2021-09-30 19:57] VITALS: BP 194/81; PULSE 75
[2021-09-30] MEDS: QUEtiapine Fumarate 300 MG TABLET PO (19:58)
[2021-09-30] MEDS: traZODone HCL 50 MG TABLET PO (21:08)
[2021-09-30 21:10] VITALS: BP 167/72; PULSE 73
[2021-10-01] VITALS (7 sets, daily range): BP systolic 171–188; BP diastolic 75–86; PULSE 74–84; RESP 18; TEMP 36.7–36.8; O2SAT 97–98; BMI 19.7
[2021-10-01] MEDS: Multivitamin TABLET 1 TAB PO (08:20)
[2021-10-01] MEDS: amLODIPine Besylate 5 MG TABLET PO (08:20)
[2021-10-01] MEDS: hydrALAZINE HCl 50 MG TABLET PO ×3 (08:20→20:24)
[2021-10-01] MEDS: Folic Acid 1 MG TABLET PO (08:21)
[2021-10-01] MEDS: Thiamine HCL 100 MG TABLET PO (08:21)
[2021-10-01] MEDS: QUEtiapine Fumarate 25 MG TABLET PO ×3 (08:21→20:25)
[2021-10-01] MEDS: Sertraline HCL 100 MG TABLET PO (08:21)
[2021-10-01] MEDS: LORazepam 1 MG TABLET PO (08:21)
[2021-10-01] MEDS: Nicotine 21 MG PATCH.TD24 TRANSDERMA (08:25)
--- NOTE | 2021-10-01 12:21 | HO.OPPROGNO ---
Subjective Subjective Reason For Visit: MDD recurrent, Bipolar disorder, depressed severe Diagnostics Vital Signs (24Hr): Vital Signs - 24 hr 09/30/21 18:00 09/30/21 19:57 09/30/21 21:10 Temperature 97.7 F Pulse Rate 75 75 73 Respiratory Rate 18 Blood Pressure 194/81 H 194/81 H 167/72 H Pulse Oximetry 98 10/01/21 08:20 10/01/21 09:26 Temperature 98.1 F Pulse Rate 81 81 Respiratory Rate Blood Pressure 177/75 H 177/75 H Pulse Oximetry 97 Body Mass Index 19.7 Labs Results: 09/27/21 06:28 09/27/21 06:28 Discharge Plan Discharge Referrals: PhysicianKandace J [Primary Care Provider] - 1 Week Assessment & Plan I spent minutes with the patient and/or on the patient floor today, greater than?50% of which was spent counseling/coordinating care.
[2021-10-01] MEDS: LORazepam 0.5 MG TABLET PO ×2 (15:22→21:57)
--- NOTE | 2021-10-01 17:02 | HO.PSYCHPN ---
Subjective Subjective Date of Service: 10/01/21 Reason For Visit: MDD recurrent, Bipolar disorder, depressed severe Subjective Notes: Conditional Voluntary Interim History: Pt reports doing well in that he is sleeping and eating well. He reports morning of his of 18 years. He reports not having stable housing. He states he does not want to go to sober house or any kind of substance use treatment. He reports he wants his sister to find a place for him through friend. He has been visible in the unit, no behavioral concerns. Medication Compliance: Yes Review of Systems Review of Systems As above. Yes all other systems are reviewed and are negative Reports Normal hearing present Reports Normal hearing present Mental Status Exam Mental Status Exam Patient Appearance: Well Grooomed Patient Orientation: Person, Place and Situation Level of Consciousness: Awake and Appropriate Patient Behavior: Cooperative and Passive Mood Description: Constricted and Depressed Affect Description: Constricted Patient Cognition Impaired: No Ability to Follow Directions: Good Speech Pattern: Appropriate Memory Description: Intact Diagnostics Vital Signs (24Hr): Vital Signs - 24 hr 09/30/21 18:00 09/30/21 19:57 09/30/21 21:10 Temperature 97.7 F Pulse Rate 75 75 73 Respiratory Rate 18 Blood Pressure 194/81 H 194/81 H 167/72 H Pulse Oximetry 98 10/01/21 08:20 10/01/21 09:26 10/01/21 15:19 Temperature 98.1 F Pulse Rate 81 81 84 Respiratory Rate Blood Pressure 177/75 H 177/75 H 171/76 H Pulse Oximetry 97 Body Mass Index 19.7 Labs Results: 09/27/21 06:28 09/27/21 06:28 Medications Medications Current Medications Acetaminophen (Acetaminophen 325 Mg Tablet) 650 mg PO Q6H PRN PRN Reason: Headache/Pain Mild Scale (1-3) Al Hydroxide/Mg Hydroxide (Magnesium Hydrox/Alum Hydrox 30 Ml Oral.Susp) 30 ml PO Q6H PRN PRN Reason: Heartburn/Nausea Albuterol Sulfate (Albuterol Sulfate 90 Mcg 8 Gm Inhaler) 2 puff INHALE Q4H PRN PRN Reason: Shortness of Breath Amlodipine Besylate (Amlodipine Besylate 5 Mg Tablet) 5 mg PO DAILY [facility]; Protocol Last Admin: 10/01/21 08:20 Dose: 5 mg Documented by: Folic Acid (Folic Acid 1 Mg Tablet) 1 mg PO DAILY [facility] Last Admin: 10/01/21 08:21 Dose: 1 mg Documented by: Hydralazine HCl (Hydralazine Hcl 50 Mg Tablet) 50 mg PO TID [facility]; Protocol Last Admin: 10/01/21 15:19 Dose: 50 mg Documented by: Hydroxyzine HCl (Hydroxyzine Hcl 25 Mg Tablet) 25 mg PO Q6H PRN PRN Reason: Anxiety Last Admin: 09/27/21 23:49 Dose: 25 mg Documented by: Lorazepam (Lorazepam 0.5 Mg Tablet) 0.5 mg PO Q6H PRN PRN Reason: anxiety, alcohol withdrawal Last Admin: 10/01/21 15:22 Dose: 0.5 mg Documented by: Magnesium Hydroxide (Milk Of Magnesia 30 Ml Oral.Susp) 30 ml PO DAILY PRN PRN Reason: Constipation Multivitamins/Vitamin C (Multivitamin Tablet) 1 tab PO DAILY [facility] Last Admin: 10/01/21 08:20 Dose: 1 tab Documented by: Nicotine (Nicotine 21 Mg Patch.Td24) 21 mg TRANSDERMA DAILY [facility] Last Admin: 10/01/21 08:25 Dose: 21 mg Documented by: Quetiapine Fumarate (Quetiapine Fumarate 25 Mg Tablet) 25 mg PO TID [facility] Last Admin: 10/01/21 15:19 Dose: 25 mg Documented by: Quetiapine Fumarate (Quetiapine Fumarate 300 Mg Tablet) 300 mg PO BEDTIME [facility] Last Admin: 09/30/21 19:58 Dose: 300 mg Documented by: Sertraline HCl (Sertraline Hcl 100 Mg Tablet) 100 mg PO DAILY [facility] Last Admin: 10/01/21 08:21 Dose: 100 mg Documented by: Thiamine HCl (Thiamine Hcl 100 Mg Tablet) 100 mg PO DAILY [facility] Last Admin: 10/01/21 08:21 Dose: 100 mg Documented by: Trazodone HCl (Trazodone Hcl 50 Mg Tablet) 50 mg PO BEDTIME PRN PRN Reason: Insomnia Last Admin: 09/30/21 21:08 Dose: 50 mg Documented by: Allergies Allergies Allergy/AdvReac Type Severity Reaction Status Date / Time No Known Allergies Allergy Unverified 09/26/21 20:49 Assessment & Plan Assessment & Plan (1) HTN (hypertension): Status: Acute Code(s): I10 - Essential (primary) hypertension Assessment and Plan: 71-year-old male who was transferred from the [facility] secondary to suicidal ideation use of Percocet, diagnosed with Bipolar Disorder, a long history of alcohol use disorder, opioid use disorder and cocaine use disorder, admitted after an exacerbation of depression in the context on the recent loss of his a few days ago. Plan: 1. Keep same treatment. 2. Reassessment with the team for discharge planning. I spent minutes with the patient and/or on the patient floor today, greater than?50% of which was spent counseling/coordinating care. Reason for contiued inpatient stay Substantial Risk for: harm to self
[2021-10-01] MEDS: QUEtiapine Fumarate 300 MG TABLET PO (20:25)
[2021-10-01] MEDS: amLODIPine Besylate 2.5 MG TABLET PO (22:32)
[2021-10-02] VITALS (8 sets, daily range): BP systolic 173–201; BP diastolic 72–84; PULSE 76–96; RESP 16–20; TEMP 36.1–36.8; O2SAT 98–99
[2021-10-02] MEDS: amLODIPine Besylate 10 MG TABLET PO (09:52)
[2021-10-02] MEDS: hydrALAZINE HCl 50 MG TABLET PO ×3 (09:55→20:29)
[2021-10-02] MEDS: Multivitamin TABLET 1 TAB PO (09:56)
[2021-10-02] MEDS: Thiamine HCL 100 MG TABLET PO (09:56)
[2021-10-02] MEDS: Sertraline HCL 100 MG TABLET PO (09:57)
[2021-10-02] MEDS: QUEtiapine Fumarate 25 MG TABLET PO ×3 (09:57→20:29)
[2021-10-02] MEDS: LORazepam 0.5 MG TABLET PO ×3 (10:01→20:34)
[2021-10-02] MEDS: Nicotine 21 MG PATCH.TD24 TRANSDERMA (10:02)
[2021-10-02] MEDS: Folic Acid 1 MG TABLET PO (10:02)
--- NOTE | 2021-10-02 14:57 | HO.PSYCHPN ---
Subjective Subjective Date of Service: 10/02/21 Reason For Visit: MDD recurrent, Bipolar disorder, depressed severe Subjective Notes: Conditional Voluntary Interim History: Pt reports doing well. He reports good news in that he can go to and stay with his sister. He reports sleeping and eating well. He denies SI/HI. He has been visible in the unit, social with select peer. We discussed HTN- amlodipine increased to 10mg po daily given SBP >180. Medication Compliance: Yes Side effects from medications: No Attending Groups: Intermittent Review of Systems Review of Systems Yes all other systems are reviewed and are negative Reports Normal hearing present Reports Normal hearing present Mental Status Exam Mental Status Exam Narrative: Appearance: casually groomed, fair hygiene in NAD Behavior: calm, cooperative psychomotor: no agitation or retardation noted Speech: clear, regular rate/rhythm/volume, spontaneous Thought process:linear Thought content:no signs of psychosis, future oriented, more hopeful Mood: better Affect: brighter, non labile, congruent SI: denies HI:denies VH/AH:none Delusions:none Insight/judgment:fair x 2. Memory/cog: alert, oriented x 3. not formally tested. Diagnostics Vital Signs (24Hr): Vital Signs - 24 hr 10/01/21 15:19 10/01/21 18:00 10/01/21 20:24 Temperature 98.3 F Pulse Rate 84 80 80 Respiratory Rate 18 Blood Pressure 171/76 H 188/86 H 188/86 H Pulse Oximetry 98 10/01/21 21:52 10/01/21 22:32 10/02/21 06:00 Temperature 97 F Pulse Rate 74 74 76 Respiratory Rate 20 Blood Pressure 184/81 H 184/81 H 173/72 H Pulse Oximetry 98 99 10/02/21 09:52 10/02/21 09:55 Temperature Pulse Rate 76 76 Respiratory Rate Blood Pressure 173/72 H 173/72 H Pulse Oximetry Body Mass Index 20.0 Labs Results: 09/27/21 06:28 09/27/21 06:28 Medications Medications Current Medications Acetaminophen (Acetaminophen 325 Mg Tablet) 650 mg PO Q6H PRN PRN Reason: Headache/Pain Mild Scale (1-3) Al Hydroxide/Mg Hydroxide (Magnesium Hydrox/Alum Hydrox 30 Ml Oral.Susp) 30 ml PO Q6H PRN PRN Reason: Heartburn/Nausea Albuterol Sulfate (Albuterol Sulfate 90 Mcg 8 Gm Inhaler) 2 puff INHALE Q4H PRN PRN Reason: Shortness of Breath Amlodipine Besylate (Amlodipine Besylate 10 Mg Tablet) 10 mg PO DAILY [facility]; Protocol Last Admin: 10/02/21 09:52 Dose: 10 mg Documented by: Folic Acid (Folic Acid 1 Mg Tablet) 1 mg PO DAILY [facility] Last Admin: 10/02/21 10:02 Dose: 1 mg Documented by: Hydralazine HCl (Hydralazine Hcl 50 Mg Tablet) 50 mg PO TID [facility]; Protocol Last Admin: 10/02/21 09:55 Dose: 50 mg Documented by: Hydroxyzine HCl (Hydroxyzine Hcl 25 Mg Tablet) 25 mg PO Q6H PRN PRN Reason: Anxiety Last Admin: 09/27/21 23:49 Dose: 25 mg Documented by: Lorazepam (Lorazepam 0.5 Mg Tablet) 0.5 mg PO Q6H PRN PRN Reason: anxiety, alcohol withdrawal Last Admin: 10/02/21 10:01 Dose: 0.5 mg Documented by: Magnesium Hydroxide (Milk Of Magnesia 30 Ml Oral.Susp) 30 ml PO DAILY PRN PRN Reason: Constipation Multivitamins/Vitamin C (Multivitamin Tablet) 1 tab PO DAILY [facility] Last Admin: 10/02/21 09:56 Dose: 1 tab Documented by: Nicotine (Nicotine 21 Mg Patch.Td24) 21 mg TRANSDERMA DAILY [facility] Last Admin: 10/02/21 10:02 Dose: 21 mg Documented by: Quetiapine Fumarate (Quetiapine Fumarate 25 Mg Tablet) 25 mg PO TID [facility] Last Admin: 10/02/21 09:57 Dose: 25 mg Documented by: Quetiapine Fumarate (Quetiapine Fumarate 300 Mg Tablet) 300 mg PO BEDTIME [facility] Last Admin: 10/01/21 20:25 Dose: 300 mg Documented by: Sertraline HCl (Sertraline Hcl 100 Mg Tablet) 100 mg PO DAILY [facility] Last Admin: 10/02/21 09:57 Dose: 100 mg Documented by: Thiamine HCl (Thiamine Hcl 100 Mg Tablet) 100 mg PO DAILY [facility] Last Admin: 10/02/21 09:56 Dose: 100 mg Documented by: Trazodone HCl (Trazodone Hcl 50 Mg Tablet) 50 mg PO BEDTIME PRN PRN Reason: Insomnia Last Admin: 09/30/21 21:08 Dose: 50 mg Documented by: Allergies Allergies Allergy/AdvReac Type Severity Reaction Status Date / Time No Known Allergies Allergy Unverified 09/26/21 20:49 Assessment & Plan Assessment & Plan (1) HTN (hypertension): Status: Acute Code(s): I10 - Essential (primary) hypertension (2) MDD (major depressive disorder), recurrent severe, without psychosis: Status: Acute Code(s): F33.2 - Major depressive disorder, recurrent severe without psychotic features (3) Cocaine use disorder: Status: Acute Code(s): F14.10 - Cocaine abuse, uncomplicated (4) Alcohol use disorder, severe, dependence: Status: Acute Code(s): F10.20 - Alcohol dependence, uncomplicated Assessment and Plan: 71-year-old male who was transferred from the [facility] secondary to suicidal ideation use of Percocet, diagnosed with Bipolar Disorder, a long history of alcohol use disorder, opioid use disorder and cocaine use disorder, admitted after an exacerbation of depression in the context on the recent loss of his a few days ago. Plan: 1. HTN- amlodipine 10mg po daily 2. Continue sertraline 100mg po daily and seroquel 2. Reassessment with the team for discharge planning. I spent minutes with the patient and/or on the patient floor today, greater than?50% of which was spent counseling/coordinating care. Reason for contiued inpatient stay Substantial Risk for: stable for discharge
[2021-10-02] MEDS: QUEtiapine Fumarate 300 MG TABLET PO (20:29)
[2021-10-03] VITALS (7 sets, daily range): BP systolic 145–197; BP diastolic 63–87; PULSE 73–77; RESP 17–18; TEMP 36.3–37; O2SAT 98
[2021-10-03] MEDS: Nicotine 21 MG PATCH.TD24 TRANSDERMA (09:18)
[2021-10-03] MEDS: Thiamine HCL 100 MG TABLET PO (09:20)
[2021-10-03] MEDS: Sertraline HCL 100 MG TABLET PO (09:20)
[2021-10-03] MEDS: Multivitamin TABLET 1 TAB PO (09:20)
[2021-10-03] MEDS: Folic Acid 1 MG TABLET PO (09:20)
[2021-10-03] MEDS: QUEtiapine Fumarate 25 MG TABLET PO ×3 (09:20→20:50)
[2021-10-03] MEDS: hydrALAZINE HCl 50 MG TABLET PO ×3 (09:20→20:50)
[2021-10-03] MEDS: amLODIPine Besylate 10 MG TABLET PO (09:21)
[2021-10-03] MEDS: LORazepam 0.5 MG TABLET PO ×2 (09:34→16:34)
--- NOTE | 2021-10-03 10:20 | MHC.CLN ---
F/U PATIENT APPEARS TO BE EATING WELL. DIET=REGULAR WITH ENSURE TID. SKIN INTACT. SLIGHT, FAVORABLE WEIGHT GAIN X [address] TO FOLLOW WEEKLY.
--- NOTE | 2021-10-03 12:29 | HO.PSYCHPN ---
Subjective Subjective Date of Service: 10/03/21 Reason For Visit: MDD recurrent, Bipolar disorder, depressed severe Subjective Notes: Conditional Voluntary Interim History: Pt reports that he is doing well in terms of his mood. He reports sleeping and eating well. He denies SI/HI. He declines referrals for substance use treatment. He will go to sister's house but not tomorrow but Wednesday. Per nursing, pt has been more visible in the unit. He attends some groups. No behavioral concerns. HIS SBP improved to 140 with higher dose of amlodipine. Review of Systems Review of Systems Yes all other systems are reviewed and are negative Reports Normal hearing present Reports Normal hearing present Mental Status Exam Mental Status Exam Patient Appearance: Well Grooomed Patient Orientation: Person, Place and Situation Level of Consciousness: Awake and Appropriate Patient Behavior: Cooperative and Passive Mood Description: Constricted and Depressed Affect Description: Constricted Patient Cognition Impaired: No Ability to Follow Directions: Good Speech Pattern: Appropriate Memory Description: Intact Diagnostics Vital Signs (24Hr): Vital Signs - 24 hr 10/02/21 16:08 10/02/21 16:31 10/02/21 19:30 Temperature 98.2 F 97.8 F Pulse Rate 96 96 80 Respiratory Rate 16 16 Blood Pressure 200/84 H 200/84 H 201/84 H Pulse Oximetry 98 98 10/02/21 20:29 10/02/21 22:00 10/03/21 09:18 Temperature 97.4 F Pulse Rate 80 74 Respiratory Rate 17 Blood Pressure 201/84 H 178/79 H 197/86 H Pulse Oximetry 98 10/03/21 09:20 10/03/21 09:21 Temperature Pulse Rate 74 74 Respiratory Rate Blood Pressure 197/86 H 197/86 H Pulse Oximetry Body Mass Index 20.0 Labs Results: 09/27/21 06:28 09/27/21 06:28 Medications Medications Current Medications Acetaminophen (Acetaminophen 325 Mg Tablet) 650 mg PO Q6H PRN PRN Reason: Headache/Pain Mild Scale (1-3) Al Hydroxide/Mg Hydroxide (Magnesium Hydrox/Alum Hydrox 30 Ml Oral.Susp) 30 ml PO Q6H PRN PRN Reason: Heartburn/Nausea Albuterol Sulfate (Albuterol Sulfate 90 Mcg 8 Gm Inhaler) 2 puff INHALE Q4H PRN PRN Reason: Shortness of Breath Amlodipine Besylate (Amlodipine Besylate 10 Mg Tablet) 10 mg PO DAILY [facility]; Protocol Last Admin: 10/03/21 09:21 Dose: 10 mg Documented by: Folic Acid (Folic Acid 1 Mg Tablet) 1 mg PO DAILY [facility] Last Admin: 10/03/21 09:20 Dose: 1 mg Documented by: Hydralazine HCl (Hydralazine Hcl 50 Mg Tablet) 50 mg PO TID [facility]; Protocol Last Admin: 10/03/21 09:20 Dose: 50 mg Documented by: Hydroxyzine HCl (Hydroxyzine Hcl 25 Mg Tablet) 25 mg PO Q6H PRN PRN Reason: Anxiety Last Admin: 09/27/21 23:49 Dose: 25 mg Documented by: Lorazepam (Lorazepam 0.5 Mg Tablet) 0.5 mg PO Q6H PRN PRN Reason: anxiety, alcohol withdrawal Last Admin: 10/03/21 09:34 Dose: 0.5 mg Documented by: Magnesium Hydroxide (Milk Of Magnesia 30 Ml Oral.Susp) 30 ml PO DAILY PRN PRN Reason: Constipation Multivitamins/Vitamin C (Multivitamin Tablet) 1 tab PO DAILY [facility] Last Admin: 10/03/21 09:20 Dose: 1 tab Documented by: Nicotine (Nicotine 21 Mg Patch.Td24) 21 mg TRANSDERMA DAILY [facility] Last Admin: 10/03/21 09:18 Dose: 21 mg Documented by: Quetiapine Fumarate (Quetiapine Fumarate 25 Mg Tablet) 25 mg PO TID [facility] Last Admin: 10/03/21 09:20 Dose: 25 mg Documented by: Quetiapine Fumarate (Quetiapine Fumarate 300 Mg Tablet) 300 mg PO BEDTIME [facility] Last Admin: 10/02/21 20:29 Dose: 300 mg Documented by: Sertraline HCl (Sertraline Hcl 100 Mg Tablet) 100 mg PO DAILY [facility] Last Admin: 10/03/21 09:20 Dose: 100 mg Documented by: Thiamine HCl (Thiamine Hcl 100 Mg Tablet) 100 mg PO DAILY [facility] Last Admin: 10/03/21 09:20 Dose: 100 mg Documented by: Trazodone HCl (Trazodone Hcl 50 Mg Tablet) 50 mg PO BEDTIME PRN PRN Reason: Insomnia Last Admin: 09/30/21 21:08 Dose: 50 mg Documented by: Allergies Allergies Allergy/AdvReac Type Severity Reaction Status Date / Time No Known Allergies Allergy Unverified 09/26/21 20:49 Assessment & Plan Assessment & Plan (1) HTN (hypertension): Status: Acute Code(s): I10 - Essential (primary) hypertension (2) MDD (major depressive disorder), recurrent severe, without psychosis: Status: Acute Code(s): F33.2 - Major depressive disorder, recurrent severe without psychotic features (3) Cocaine use disorder: Status: Acute Code(s): F14.10 - Cocaine abuse, uncomplicated (4) Alcohol use disorder, severe, dependence: Status: Acute Code(s): F10.20 - Alcohol dependence, uncomplicated Assessment and Plan: 71-year-old male who was transferred from the [facility] secondary to suicidal ideation use of Percocet, diagnosed with Bipolar Disorder, a long history of alcohol use disorder, opioid use disorder and cocaine use disorder, admitted after an exacerbation of depression in the context on the recent loss of his a few days ago. Plan: 1. HTN- amlodipine 10mg po daily 2. Continue sertraline 100mg po daily and seroquel 2. Reassessment with the team for discharge planning. I spent minutes with the patient and/or on the patient floor today, greater than?50% of which was spent counseling/coordinating care. Reason for contiued inpatient stay Substantial Risk for: stable for discharge
[2021-10-03] MEDS: QUEtiapine Fumarate 300 MG TABLET PO (20:49)
[2021-10-04] MEDS: LORazepam 0.5 MG TABLET PO ×4 (02:55→22:01)
--- NOTE | 2021-10-04 07:49 | HO.PSYCHPN ---
Subjective Subjective Date of Service: 10/04/21 Reason For Visit: MDD recurrent, Bipolar disorder, depressed severe Subjective Notes: Conditional Voluntary Interim History: Pt continues to report that he is doing well although missing his . He reports sleeping and eating well. He denies SI/HI. He has been visible in the unit, social with select peers. No behavioral concerns. Pt looking forward to be discharged Wednesday. Medication Compliance: Yes Side effects from medications: No Review of Systems Review of Systems Yes all other systems are reviewed and are negative Reports Normal hearing present Reports Normal hearing present Mental Status Exam Mental Status Exam Patient Appearance: Well Grooomed Patient Orientation: Person, Place and Situation Level of Consciousness: Awake and Appropriate Patient Behavior: Cooperative and Passive Mood Description: Constricted and Depressed Affect Description: Constricted Patient Cognition Impaired: No Ability to Follow Directions: Good Speech Pattern: Appropriate Memory Description: Intact Diagnostics Vital Signs (24Hr): Vital Signs - 24 hr 10/04/21 08:23 10/04/21 08:24 10/04/21 08:55 Temperature 98 F Pulse Rate 78 78 78 Respiratory Rate Blood Pressure 166/73 H 166/73 H 166/73 H Pulse Oximetry 98 10/04/21 14:36 10/04/21 20:21 10/04/21 21:00 Temperature 97.9 F Pulse Rate 75 76 76 Respiratory Rate 18 Blood Pressure 140/64 H 168/72 H 166/74 H Pulse Oximetry 98 Body Mass Index 20.0 Labs Results: 09/27/21 06:28 09/27/21 06:28 Medications Medications Current Medications Acetaminophen (Acetaminophen 325 Mg Tablet) 650 mg PO Q6H PRN PRN Reason: Headache/Pain Mild Scale (1-3) Al Hydroxide/Mg Hydroxide (Magnesium Hydrox/Alum Hydrox 30 Ml Oral.Susp) 30 ml PO Q6H PRN PRN Reason: Heartburn/Nausea Albuterol Sulfate (Albuterol Sulfate 90 Mcg 8 Gm Inhaler) 2 puff INHALE Q4H PRN PRN Reason: Shortness of Breath Amlodipine Besylate (Amlodipine Besylate 10 Mg Tablet) 10 mg PO DAILY [facility]; Protocol Last Admin: 10/04/21 08:24 Dose: 10 mg Documented by: Folic Acid (Folic Acid 1 Mg Tablet) 1 mg PO DAILY [facility] Last Admin: 10/04/21 08:24 Dose: 1 mg Documented by: Hydralazine HCl (Hydralazine Hcl 50 Mg Tablet) 50 mg PO TID [facility]; Protocol Last Admin: 10/04/21 21:00 Dose: 50 mg Documented by: Hydroxyzine HCl (Hydroxyzine Hcl 25 Mg Tablet) 25 mg PO Q6H PRN PRN Reason: Anxiety Last Admin: 09/27/21 23:49 Dose: 25 mg Documented by: Lorazepam (Lorazepam 0.5 Mg Tablet) 0.5 mg PO Q6H PRN PRN Reason: anxiety, alcohol withdrawal Last Admin: 10/04/21 22:01 Dose: 0.5 mg Documented by: Magnesium Hydroxide (Milk Of Magnesia 30 Ml Oral.Susp) 30 ml PO DAILY PRN PRN Reason: Constipation Multivitamins/Vitamin C (Multivitamin Tablet) 1 tab PO DAILY [facility] Last Admin: 10/04/21 08:24 Dose: 1 tab Documented by: Nicotine (Nicotine 21 Mg Patch.Td24) 21 mg TRANSDERMA DAILY [facility] Last Admin: 10/04/21 08:25 Dose: 21 mg Documented by: Quetiapine Fumarate (Quetiapine Fumarate 25 Mg Tablet) 25 mg PO TID [facility] Last Admin: 10/04/21 21:01 Dose: 25 mg Documented by: Quetiapine Fumarate (Quetiapine Fumarate 300 Mg Tablet) 300 mg PO BEDTIME [facility] Last Admin: 10/04/21 21:00 Dose: 300 mg Documented by: Sertraline HCl (Sertraline Hcl 100 Mg Tablet) 100 mg PO DAILY [facility] Last Admin: 10/04/21 08:24 Dose: 100 mg Documented by: Thiamine HCl (Thiamine Hcl 100 Mg Tablet) 100 mg PO DAILY [facility] Last Admin: 10/04/21 08:24 Dose: 100 mg Documented by: Trazodone HCl (Trazodone Hcl 50 Mg Tablet) 50 mg PO BEDTIME PRN PRN Reason: Insomnia Last Admin: 09/30/21 21:08 Dose: 50 mg Documented by: Allergies Allergies Allergy/AdvReac Type Severity Reaction Status Date / Time No Known Allergies Allergy Unverified 09/26/21 20:49 Assessment & Plan Assessment & Plan (1) HTN (hypertension): Status: Acute Code(s): I10 - Essential (primary) hypertension (2) MDD (major depressive disorder), recurrent severe, without psychosis: Status: Acute Code(s): F33.2 - Major depressive disorder, recurrent severe without psychotic features (3) Cocaine use disorder: Status: Acute Code(s): F14.10 - Cocaine abuse, uncomplicated (4) Alcohol use disorder, severe, dependence: Status: Acute Code(s): F10.20 - Alcohol dependence, uncomplicated Assessment and Plan: 71-year-old male who was transferred from the [facility] secondary to suicidal ideation use of Percocet, diagnosed with Bipolar Disorder, a long history of alcohol use disorder, opioid use disorder and cocaine use disorder, admitted after an exacerbation of depression in the context on the recent loss of his a few days ago. Plan: 1. HTN- amlodipine 10mg po daily 2. Continue sertraline 100mg po daily and seroquel 2. Reassessment with the team for discharge planning. I spent minutes with the patient and/or on the patient floor today, greater than?50% of which was spent counseling/coordinating care. Reason for contiued inpatient stay Substantial Risk for: stable for discharge
[2021-10-04 08:23] VITALS: BP 166/73; PULSE 78
[2021-10-04] MEDS: hydrALAZINE HCl 50 MG TABLET PO ×3 (08:23→21:00)
[2021-10-04 08:24] VITALS: BP 166/73; PULSE 78
[2021-10-04] MEDS: amLODIPine Besylate 10 MG TABLET PO (08:24)
[2021-10-04] MEDS: QUEtiapine Fumarate 25 MG TABLET PO ×3 (08:24→21:01)
[2021-10-04] MEDS: Sertraline HCL 100 MG TABLET PO (08:24)
[2021-10-04] MEDS: Folic Acid 1 MG TABLET PO (08:24)
[2021-10-04] MEDS: Thiamine HCL 100 MG TABLET PO (08:24)
[2021-10-04] MEDS: Multivitamin TABLET 1 TAB PO (08:24)
[2021-10-04] MEDS: Nicotine 21 MG PATCH.TD24 TRANSDERMA (08:25)
[2021-10-04 08:55] VITALS: BP 166/73; PULSE 78; TEMP 36.6; O2SAT 98
[2021-10-04 14:36] VITALS: BP 140/64; PULSE 75
[2021-10-04 20:21] VITALS: BP 168/72; PULSE 76; RESP 18; TEMP 36.6; O2SAT 98
[2021-10-04 21:00] VITALS: BP 166/74; PULSE 76
[2021-10-04] MEDS: QUEtiapine Fumarate 300 MG TABLET PO (21:00)
[2021-10-05] VITALS (8 sets, daily range): BP systolic 159–200; BP diastolic 58–73; PULSE 75–80; RESP 16; TEMP 36.3–37.2; O2SAT 97–98
[2021-10-05] MEDS: Nicotine 21 MG PATCH.TD24 TRANSDERMA (07:56)
[2021-10-05] MEDS: amLODIPine Besylate 10 MG TABLET PO (07:57)
[2021-10-05] MEDS: Multivitamin TABLET 1 TAB PO (07:58)
[2021-10-05] MEDS: hydrALAZINE HCl 50 MG TABLET PO ×3 (07:58→19:47)
[2021-10-05] MEDS: QUEtiapine Fumarate 25 MG TABLET PO ×3 (07:58→19:47)
[2021-10-05] MEDS: Thiamine HCL 100 MG TABLET PO (07:58)
[2021-10-05] MEDS: Folic Acid 1 MG TABLET PO (07:59)
[2021-10-05] MEDS: Sertraline HCL 100 MG TABLET PO (07:59)
[2021-10-05] MEDS: LORazepam 0.5 MG TABLET PO ×3 (08:18→19:48)
--- NOTE | 2021-10-05 19:26 | HO.PSYCHPN ---
Subjective Subjective Date of Service: 10/05/21 Reason For Visit: MDD recurrent, Bipolar disorder, depressed severe Interim History: pt reports he is feeling well and is planning to discharge to his sister's house in [place] tomorrow. he has no requests or complaints. per staff, pt presented with SI which has now resolved. he is to be discharged on wednesday. he is currently calm and has no issues. sleeping well, still anxious and depressed. Mental Status Exam Mental Status Exam Patient Appearance: Well Grooomed Patient Orientation: Person, Place and Situation Level of Consciousness: Awake and Appropriate Patient Behavior: Cooperative and Passive Mood Description: Constricted and Depressed Affect Description: Constricted Patient Cognition Impaired: No Ability to Follow Directions: Good Speech Pattern: Appropriate Memory Description: Intact Diagnostics Vital Signs (24Hr): Vital Signs - 24 hr 10/04/21 20:21 10/04/21 21:00 10/05/21 07:57 Temperature 97.9 F Pulse Rate 76 76 80 Respiratory Rate 18 Blood Pressure 168/72 H 166/74 H 159/73 H Pulse Oximetry 98 10/05/21 07:58 10/05/21 08:20 10/05/21 14:34 Temperature 97.4 F Pulse Rate 80 80 75 Respiratory Rate Blood Pressure 159/73 H 159/73 H 161/71 H Pulse Oximetry 97 10/05/21 16:07 Temperature Pulse Rate 75 Respiratory Rate Blood Pressure 161/71 H Pulse Oximetry 98 Body Mass Index 20.0 Labs Results: 09/27/21 06:28 09/27/21 06:28 Medications Medications Current Medications Acetaminophen (Acetaminophen 325 Mg Tablet) 650 mg PO Q6H PRN PRN Reason: Headache/Pain Mild Scale (1-3) Al Hydroxide/Mg Hydroxide (Magnesium Hydrox/Alum Hydrox 30 Ml Oral.Susp) 30 ml PO Q6H PRN PRN Reason: Heartburn/Nausea Albuterol Sulfate (Albuterol Sulfate 90 Mcg 8 Gm Inhaler) 2 puff INHALE Q4H PRN PRN Reason: Shortness of Breath Amlodipine Besylate (Amlodipine Besylate 10 Mg Tablet) 10 mg PO DAILY [facility]; Protocol Last Admin: 10/05/21 07:57 Dose: 10 mg Documented by: Folic Acid (Folic Acid 1 Mg Tablet) 1 mg PO DAILY [facility] Last Admin: 10/05/21 07:59 Dose: 1 mg Documented by: Hydralazine HCl (Hydralazine Hcl 50 Mg Tablet) 50 mg PO TID [facility]; Protocol Last Admin: 10/05/21 14:34 Dose: 50 mg Documented by: Hydroxyzine HCl (Hydroxyzine Hcl 25 Mg Tablet) 25 mg PO Q6H PRN PRN Reason: Anxiety Last Admin: 09/27/21 23:49 Dose: 25 mg Documented by: Lorazepam (Lorazepam 0.5 Mg Tablet) 0.5 mg PO Q6H PRN PRN Reason: anxiety, alcohol withdrawal Last Admin: 10/05/21 14:35 Dose: 0.5 mg Documented by: Magnesium Hydroxide (Milk Of Magnesia 30 Ml Oral.Susp) 30 ml PO DAILY PRN PRN Reason: Constipation Multivitamins/Vitamin C (Multivitamin Tablet) 1 tab PO DAILY [facility] Last Admin: 10/05/21 07:58 Dose: 1 tab Documented by: Nicotine (Nicotine 21 Mg Patch.Td24) 21 mg TRANSDERMA DAILY [facility] Last Admin: 10/05/21 07:56 Dose: 21 mg Documented by: Quetiapine Fumarate (Quetiapine Fumarate 25 Mg Tablet) 25 mg PO TID [facility] Last Admin: 10/05/21 14:35 Dose: 25 mg Documented by: Quetiapine Fumarate (Quetiapine Fumarate 300 Mg Tablet) 300 mg PO BEDTIME [facility] Last Admin: 10/04/21 21:00 Dose: 300 mg Documented by: Sertraline HCl (Sertraline Hcl 100 Mg Tablet) 100 mg PO DAILY [facility] Last Admin: 10/05/21 07:59 Dose: 100 mg Documented by: Thiamine HCl (Thiamine Hcl 100 Mg Tablet) 100 mg PO DAILY [facility] Last Admin: 10/05/21 07:58 Dose: 100 mg Documented by: Trazodone HCl (Trazodone Hcl 50 Mg Tablet) 50 mg PO BEDTIME PRN PRN Reason: Insomnia Last Admin: 09/30/21 21:08 Dose: 50 mg Documented by: Allergies Allergies Allergy/AdvReac Type Severity Reaction Status Date / Time No Known Allergies Allergy Unverified 09/26/21 20:49 Assessment & Plan Assessment & Plan (1) HTN (hypertension): Status: Acute Code(s): I10 - Essential (primary) hypertension (2) MDD (major depressive disorder), recurrent severe, without psychosis: Status: Acute Code(s): F33.2 - Major depressive disorder, recurrent severe without psychotic features (3) Cocaine use disorder: Status: Acute Code(s): F14.10 - Cocaine abuse, uncomplicated (4) Alcohol use disorder, severe, dependence: Status: Acute Code(s): F10.20 - Alcohol dependence, uncomplicated Assessment and Plan: 71-year-old male who was transferred from the [facility] secondary to suicidal ideation use of Percocet, diagnosed with Bipolar Disorder, a long history of alcohol use disorder, opioid use disorder and cocaine use disorder, admitted after an exacerbation of depression in the context on the recent loss of his a few days ago. Plan: 1. HTN- amlodipine 10mg po daily 2. Continue sertraline 100mg po daily and seroquel 2. Reassessment with the team for discharge planning. I spent minutes with the patient and/or on the patient floor today, greater than?50% of which was spent counseling/coordinating care. Reason for contiued inpatient stay Substantial Risk for: harm to self and rapid decompensation
[2021-10-05] MEDS: QUEtiapine Fumarate 300 MG TABLET PO (19:47)
[2021-10-05] MEDS: traZODone HCL 50 MG TABLET PO (22:53)
[2021-10-06] MEDS: Multivitamin TABLET 1 TAB PO (08:20)
[2021-10-06] MEDS: Folic Acid 1 MG TABLET PO (08:20)
[2021-10-06] MEDS: LORazepam 0.5 MG TABLET PO ×3 (08:20→23:13)
[2021-10-06 08:21] VITALS: BP 165/72; PULSE 82
[2021-10-06] MEDS: hydrALAZINE HCl 50 MG TABLET PO ×3 (08:21→19:49)
[2021-10-06] MEDS: Sertraline HCL 100 MG TABLET PO (08:21)
[2021-10-06] MEDS: amLODIPine Besylate 10 MG TABLET PO (08:21)
[2021-10-06] MEDS: QUEtiapine Fumarate 25 MG TABLET PO ×3 (08:21→19:50)
[2021-10-06] MEDS: Nicotine 21 MG PATCH.TD24 TRANSDERMA (08:22)
[2021-10-06] MEDS: Thiamine HCL 100 MG TABLET PO (08:22)
[2021-10-06 08:55] VITALS: BP 165/72; PULSE 82; TEMP 36.6; O2SAT 98
--- NOTE | 2021-10-06 11:57 | HO.PSYCHPN ---
Subjective Subjective Date of Service: 10/06/21 Reason For Visit: MDD recurrent, Bipolar disorder, depressed severe Subjective Notes: Conditional Voluntary Interim History: Pt reports doing well. He reports at times thinking about but otherwise doing well. He denies SI/HI. He reports sleeping and eating well. He has been visible in the unit, attends some groups. Social with select peers. No behavioral concerns. HTN- much more control with increase amlodipine. Medication Compliance: Yes Side effects from medications: No Attending Groups: Intermittent Review of Systems Review of Systems Yes all other systems are reviewed and are negative Reports Normal hearing present Reports Normal hearing present Mental Status Exam Mental Status Exam Narrative: Appearance: casually groomed, fair hygiene in NAD Behavior: calm, cooperative psychomotor: no agitation or retardation noted Speech: clear, regular rate/rhythm/volume, spontaneous Thought process:linear Thought content:no signs of psychosis, looking forward to go to sister's house Mood: good Affect: congruent, non labile SI:none HI:none VH/AH:none Delusions:none Insight/judgment:fair x 2. Memory/cog: alert, oriented x 3. grossly intact to conversational testing but not formally tested. Diagnostics Vital Signs (24Hr): Vital Signs - 24 hr 10/05/21 14:34 10/05/21 16:07 10/05/21 19:47 Temperature Pulse Rate 75 75 80 Respiratory Rate Blood Pressure 161/71 H 161/71 H 200/70 H Pulse Oximetry 98 10/05/21 20:30 10/05/21 21:30 10/06/21 08:21 Temperature 99 F Pulse Rate 80 82 Respiratory Rate 16 Blood Pressure 200/70 H 160/58 H 165/72 H Pulse Oximetry 98 10/06/21 08:55 Temperature 97.8 F Pulse Rate 82 Respiratory Rate Blood Pressure 165/72 H Pulse Oximetry 98 Body Mass Index 20.0 Labs Results: 09/27/21 06:28 09/27/21 06:28 Medications Medications Current Medications Acetaminophen (Acetaminophen 325 Mg Tablet) 650 mg PO Q6H PRN PRN Reason: Headache/Pain Mild Scale (1-3) Al Hydroxide/Mg Hydroxide (Magnesium Hydrox/Alum Hydrox 30 Ml Oral.Susp) 30 ml PO Q6H PRN PRN Reason: Heartburn/Nausea Albuterol Sulfate (Albuterol Sulfate 90 Mcg 8 Gm Inhaler) 2 puff INHALE Q4H PRN PRN Reason: Shortness of Breath Amlodipine Besylate (Amlodipine Besylate 10 Mg Tablet) 10 mg PO DAILY [facility]; Protocol Last Admin: 10/06/21 08:21 Dose: 10 mg Documented by: Folic Acid (Folic Acid 1 Mg Tablet) 1 mg PO DAILY [facility] Last Admin: 10/06/21 08:20 Dose: 1 mg Documented by: Hydralazine HCl (Hydralazine Hcl 50 Mg Tablet) 50 mg PO TID [facility]; Protocol Last Admin: 10/06/21 08:21 Dose: 50 mg Documented by: Hydroxyzine HCl (Hydroxyzine Hcl 25 Mg Tablet) 25 mg PO Q6H PRN PRN Reason: Anxiety Last Admin: 09/27/21 23:49 Dose: 25 mg Documented by: Lorazepam (Lorazepam 0.5 Mg Tablet) 0.5 mg PO Q6H PRN PRN Reason: anxiety, alcohol withdrawal Last Admin: 10/06/21 08:20 Dose: 0.5 mg Documented by: Magnesium Hydroxide (Milk Of Magnesia 30 Ml Oral.Susp) 30 ml PO DAILY PRN PRN Reason: Constipation Multivitamins/Vitamin C (Multivitamin Tablet) 1 tab PO DAILY [facility] Last Admin: 10/06/21 08:20 Dose: 1 tab Documented by: Nicotine (Nicotine 21 Mg Patch.Td24) 21 mg TRANSDERMA DAILY [facility] Last Admin: 10/06/21 08:22 Dose: 21 mg Documented by: Quetiapine Fumarate (Quetiapine Fumarate 25 Mg Tablet) 25 mg PO TID [facility] Last Admin: 10/06/21 08:21 Dose: 25 mg Documented by: Quetiapine Fumarate (Quetiapine Fumarate 300 Mg Tablet) 300 mg PO BEDTIME [facility] Last Admin: 10/05/21 19:47 Dose: 300 mg Documented by: Sertraline HCl (Sertraline Hcl 100 Mg Tablet) 100 mg PO DAILY [facility] Last Admin: 10/06/21 08:21 Dose: 100 mg Documented by: Thiamine HCl (Thiamine Hcl 100 Mg Tablet) 100 mg PO DAILY [facility] Last Admin: 10/06/21 08:22 Dose: 100 mg Documented by: Trazodone HCl (Trazodone Hcl 50 Mg Tablet) 50 mg PO BEDTIME PRN PRN Reason: Insomnia Last Admin: 10/05/21 22:53 Dose: 50 mg Documented by: Allergies Allergies Allergy/AdvReac Type Severity Reaction Status Date / Time No Known Allergies Allergy Unverified 09/26/21 20:49 Assessment & Plan Assessment & Plan (1) MDD (major depressive disorder), recurrent severe, without psychosis: Status: Acute Code(s): F33.2 - Major depressive disorder, recurrent severe without psychotic features (2) HTN (hypertension): Status: Acute Code(s): I10 - Essential (primary) hypertension (3) Cocaine use disorder: Status: Acute Code(s): F14.10 - Cocaine abuse, uncomplicated (4) Alcohol use disorder, severe, dependence: Status: Acute Code(s): F10.20 - Alcohol dependence, uncomplicated Assessment and Plan: 71-year-old male who was transferred from the [facility] secondary to suicidal ideation use of Percocet, diagnosed with Bipolar Disorder, a long history of alcohol use disorder, opioid use disorder and cocaine use disorder, admitted after an exacerbation of depression in the context on the recent loss of his a few days ago. Plan: 1. HTN- amlodipine 10mg po daily 2. Continue sertraline 100mg po daily and seroquel 2. Reassessment with the team for discharge planning. I spent minutes with the patient and/or on the patient floor today, greater than?50% of which was spent counseling/coordinating care. Reason for contiued inpatient stay Substantial Risk for: stable for discharge
[2021-10-06 16:19] VITALS: BP 193/88; PULSE 80
[2021-10-06 19:30] VITALS: BP 189/90; PULSE 84; RESP 16; TEMP 36.3; O2SAT 98
[2021-10-06 19:49] VITALS: BP 193/88; PULSE 84
[2021-10-06] MEDS: QUEtiapine Fumarate 300 MG TABLET PO (19:50)
[2021-10-06 21:00] VITALS: BP 147/65
[2021-10-06] MEDS: traZODone HCL 50 MG TABLET PO (23:13)
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
--- NOTE | 2021-10-07 09:25 | PC.NURSE ---
Patient alert and oriented times 4. Endorses readiness for d/c. All materials reviewed with patient. Patient expresses understanding. Expressed anxiety re:D/c and making bus connections to [place]. Medicated with Lorazepam one hour prior to d/c. Patient was neatly groomed and dressed. Escorted to front of hopital to cab by staff.
== END 2021-10-07 09:24 | disposition home or self-care (01) | DRG 885 ==
PROVIDERS: Registered Nurse; Admitting Provider Psychiatry & Neurology Psychiatry; Visit Provider Social Worker
DX: F33.2 Major depressive disorder, recurrent severe without psychotic features (principal); R45.851 Suicidal ideations; F14.10 Cocaine abuse, uncomplicated; F10.20 Alcohol dependence, uncomplicated; F17.210 Nicotine dependence, cigarettes, uncomplicated; Z71.6 Tobacco abuse counseling; I10 Essential (primary) hypertension; J44.9 Chronic obstructive pulmonary disease, unspecified; F43.10 Post-traumatic stress disorder, unspecified; Z91.51 Personal history of suicidal behavior; Z23 Encounter for immunization; Z79.899 Other long term (current) drug therapy
CPT/HCPCS: 36415; 80053; 80061; 83735; 85025; 90686